=== PATIENT | male | born 1960 | race Caucasian/White ===

== ENCOUNTER 2021-05-03 17:22 | Emergency (ER) | payer OTHER, SELFPAY ==
[2021-05-03 17:25] VITALS: BP 157/63; PULSE 75; RESP 16; TEMP 36.7; O2SAT 97
--- NOTE | 2021-05-03 19:12 | ED_ITS ---
HPI - Wound/Laceration <Twin Roe PA-C - Last Filed: 05/04/21 20:21> General Chief Complaint: Wound/Laceration Stated Complaint: RT HAND FINGER INJURY SLICED Time Seen by Provider: 05/03/21 18:58 Source: patient Mode of arrival: Ambulatory History of Present Illness HPI narrative: Patient is a 60-year-old male presenting to the emergency department today for an evaluation of a right 4th finger laceration. Patient states he was washing dishes tonight when a plastic plate collided with a champagne flute causing it to tip over. The patient explains that he attempted to catch the flute before it fell over, but he states that he believes the plastic plate caused the glass to shatter before he caught it resulting in a laceration to his right 4th digit. Patient denies injuries or lacerations elsewhere. No fever, chills, chest pain, shortness of breath, abdominal pain, nausea, vomiting, diarrhea, cough, dysuria, hematuria, numbness or tingling of the bilateral upper extremities reported. No other concerns voiced at this time. Related Data Allergies Allergy/AdvReac Type Severity Reaction Status Date / Time acetaminophen [From [facility]] Allergy Intermediate RASH Verified 05/03/21 19:41 chlorpheniramine Allergy Intermediate RASH Verified 05/03/21 19:41 [From [facility]] phenylephrine [From [facility]] Allergy Intermediate RASH Verified 05/03/21 19:41 phenylpropanolamine Allergy Intermediate RASH Verified 05/03/21 19:41 [From [facility]] pseudoephedrine Allergy Intermediate RASH Verified 05/03/21 19:41 [From [facility]] Review of Systems <Twin Roe PA-C - Last Filed: 05/04/21 20:21> Constitutional Constitutional: Denies chills, Denies fatigue, Denies fever(s), Denies frequent falls, Denies lethargy and Denies weakness Eyes Eyes: Denies loss of vision ENT Ears, Nose, Mouth, and Throat: Denies dizziness and Denies neck pain Cardiovascular Cardiovascular: Denies chest pain, Denies irregular heart rhythm, Denies lightheadedness, Denies palpitations, Denies dyspnea, Denies dyspnea on exertion and Denies orthopnea Respiratory Respiratory: Denies cough, Denies dyspnea, Denies dyspnea on exertion and Denies wheezing Gastrointestinal Gastrointestinal: Denies abdominal pain, Denies change in bowel habits, Denies diarrhea, Denies nausea and Denies vomiting Musculoskeletal Musculoskeletal: Denies back pain, Denies muscle weakness, Denies neck pain, Denies numbness and Denies tingling Integumentary/Breasts Skin/Breast: Denies pruritus, Denies erythema, Denies rash and Reports wounds (Laceration to right 4th finger) Neurologic Neurologic: Denies behavioral changes, Denies confusion, Denies dizziness, Denies frequent falls, Denies loss of vision, Denies numbness, Denies tingling and Denies weakness Psychiatric Psychiatric: Denies behavioral changes and Denies confusion Endocrine Endocrine: Denies fatigue and Denies palpitations Allergic/Immunologic Allergic/Immunologic: Denies wheezing Exam <Twin Roe PA-C - Last Filed: 05/04/21 20:21> Narrative Exam Narrative: GENERAL: 60 year old patient appears stated age. Well-developed patient, in mild distress. HEAD: Atraumatic. Normocephalic. EYES: Pupils equal round and reactive. Extraocular motions intact. No scleral icterus. No injection or drainage. ENT: Nose without bleeding, purulent drainage. Throat without erythema, tonsillar hypertrophy or exudate. Airway patent. NECK: Trachea midline. Non tender CARDIOVASCULAR: Regular rate and rhythm without murmurs, gallops, or rubs. RESPIRATORY: Clear to auscultation. Breath sounds equal bilaterally. No wheezes, rales, or rhonchi. GASTROINTESTINAL: Abdomen soft, non-tender, nondistended. EXTREMITIES: No edema or joint tenderness. Good sensation appreciated throughout the bilateral upper extremities to light touch. Gross motor function intact throughout the bilateral upper extremities. BACK: Nontender without deformity or crepitance. No flank tenderness. NEURO: AOx3. SKIN: No rash or erythema of visible areas. The shaped laceration appreciated at the tip of the D IP of the right 4th finger. No foreign body appreciated within the laceration. Laceration is actively bleeding without any other appreciable discharge. Initial Vital Signs Initial Vital Signs: Vital Signs Temperature 98.1 F 05/03/21 17:25 Pulse Rate 75 05/03/21 17:25 Respiratory Rate 16 05/03/21 17:25 Blood Pressure 157/63 H 05/03/21 17:25 Pulse Oximetry 97 05/03/21 17:25 <Evelyn Beavers DO - Last Filed: 05/05/21 03:06> Initial Vital Signs Initial Vital Signs: Vital Signs Temperature 98.1 F 05/03/21 17:25 Pulse Rate 75 05/03/21 17:25 Respiratory Rate 16 05/03/21 17:25 Blood Pressure 157/63 H 05/03/21 17:25 Pulse Oximetry 97 05/03/21 17:25 Procedures <NAYELI Godinez Last Filed: 05/04/21 20:21> Laceration Repair Laceration 1: Time of procedure: 20:39 Site: hand (Right 4th finger) Side (If applicable): right Size (cm): 2 Description: clean and other (The shape) Depth: simple, single layer Local Anesthetic: lidocaine 1% Amount of anesthesia used (mL): 9 Pre-repair: wound explored, irrigated extensively and deep structures intact Skin layer closed with: nylon Size (cm): 5-0 Number of sutures: 9 Technique: simple, interrupted Course <NAYLEI Godinez Last Filed: 05/04/21 20:21> Course Course Narrative: Buffered lidocaine ordered for a laceration repair. Orders Ordered: Discontinued Medications Lidocaine/Sodium Bicarbonate (Lido 1%/Sod Bicarb 8.4% (10ml) 10 Ml Syringe) 10 ml INJ NOW ONE Stop: 05/03/21 19:12 Last Admin: 05/03/21 19:41 Dose: 10 ml Documented by: VANESSA Vital Signs Vital signs: Vital Signs - 8 hr 05/03/21 17:25 Temperature 98.1 F Pulse Rate 75 Respiratory Rate 16 Blood Pressure 157/63 H Pulse Oximetry 97 <DO Tammi Robert Last Filed: 05/05/21 03:06> Orders Ordered: Discontinued Medications Lidocaine/Sodium Bicarbonate (Lido 1%/Sod Bicarb 8.4% (10ml) 10 Ml Syringe) 10 ml INJ NOW ONE Stop: 05/03/21 19:12 Last Admin: 05/03/21 19:41 Dose: 10 ml Documented by: VANESSA Vital Signs Vital signs: Vital Signs - 8 hr 05/03/21 17:25 Temperature 98.1 F Pulse Rate 75 Respiratory Rate 16 Blood Pressure 157/63 H Pulse Oximetry 97 MDM - Wound/Laceration <NAYELI Godinez Last Filed: 05/04/21 20:21> [facility] Narrative Medical decision making narrative: Patient is a 60-year-old male presenting to the emergency department today for an evaluation of a right 4th finger laceration. To consider superficial skin laceration versus abrasion. Superficial laceration closed with 9 5-0 Ethilon sutures and patient tolerated the procedure well. Discussed strict return precautions with patient prior to discharge. Discharge Plan Departure Patient Disposition: Home Clinical Impression: Laceration Instructions: DI for Laceration Repair Activity Restrictions/Additional Instructions: *You have been diagnosed with laceration *What to do: *Please continue to take your regular medications as directed. [ ] New medication prescriptions sent to your pharmacy: [ ] [ ] New medication written as a paper prescription [X] No new medications given *Please follow up with your primary care provider in 2-3 days, call for an appointment. Let them know you were seen in the Emergency Department and that we ask that you be seen in follow up. We will electronically transmit a record of today's note if your PCP is in our system. *Please avoid soaking the hand. And can be washed with soap and water and patted dry. Please keep the sutures in place for 10-14 days. Can be removed here in the emergency department, with your primary care provider, or urgent care. *If you do not have a primary care provider please contact the [facility] Resource line at [phone]. They will ask some questions about your medical history and help get you set up with a doctor in the community. *Return to Emergency Department if you should have any new, worsening or concerning symptoms, such as fever greater than 101 F, shaking chills, worsening pain, persistent vomiting or other bothersome symptoms Referrals: Berto Ferrell PA-C [Primary Care Provider] - <Evelyn Beavers DO - Last Filed: 05/05/21 03:06> Cosign ED Attending Rajinder Attestation: I was immediately available in the department for consultation. Documentation has been reviewed. I agree with assessment and plan.
[2021-05-03] MEDS: LIDO 1%/SOD BICARB 8.4% (10ML) 10 ML SYRINGE INJ (19:41)
== END 2021-05-03 21:03 | disposition home or self-care (01) ==
PROVIDERS: Emergency Provider Physician Assistant; PCP Physician Assistant
DX: S61.214A Laceration without foreign body of right ring finger without damage to nail, initial encounter (principal); W25.XXXA Contact with sharp glass, initial encounter; Y93.G1 Activity, food preparation and clean up
CPT/HCPCS: 12001; 99282